=== PATIENT | male | born 1955 | race African-American/Black ===

== ENCOUNTER 2022-03-11 10:08 | Emergency (ER) | payer MEDICARE, MEDICAID ==
[2022-03-11] MEDS ORDERED: SODIUM CHLORIDE 0.9% 1,000 ML IV STA (10:48)
--- NOTE | 2022-03-11 10:50 | ED Physician Documentation ---
History of Present Illness - Stated complaint Stated Complaint: DIZZINESS/BODY ACHES - Chief complaint Chief Complaint: General - History obtained from History obtained from: Patient - History of Present Illness Timing: How many days ago (2) - Additonal information Additional information: 66-year-old male who lives in his car has developed a cough and congestion he aches all over and today he is finding himself weak. He is having a hard time getting in and out of his car. He has not done a home test and he is unimmunized. Review of Systems Constitutional: reports: Myalgias, Fatigue. denies: Fever Eyes: denies: Decreased vision Ears: denies: Ear pain Nose: reports: Rhinorrhea / runny nose, Congestion Throat: denies: Sore throat Cardiac: denies: Chest pain / pressure, Palpitations Respiratory: reports: Cough GI: denies: Vomiting, Diarrhea : denies: Dysuria, Frequency Skin: denies: Rash Musculoskeletal: denies: Neck pain, Back pain, Extremity pain Neurologic: reports: Generalized weakness. denies: Focal weakness, Numbness PD PAST MEDICAL HISTORY - Present Medications Home Medications: Ambulatory Orders Medication Instructions Recorded Confirmed Azithromycin [Zithromax] 250 mg PO DAILY #6 tablet 03/11/22 - Allergies Allergies/Adverse Reactions: Allergies Allergy/AdvReac Type Severity Reaction Status Date / Time No Known Drug Allergies Allergy Verified 03/11/22 10:21 PD ED PE NORMAL - General General: No acute distress, Well developed/nourished, Other (2 second speech delay 2 second delay in execution of motor commands. ) - HEENT HEENT: Atraumatic, PERRL, EOMI, Other (dry mucous membranes) - Neck Neck: Supple, no meningeal sign, No bony TTP - Cardiac Cardiac: RRR, No murmur - Respiratory Respiratory: No respiratory distress, Clear bilaterally - Abdomen Abdomen: Soft, Non tender - Back Back: No CVA TTP, No spinal TTP - Derm Derm: Normal color, Warm and dry, No rash - Extremities Extremities: No deformity, No edema - Neuro Neuro: Alert and oriented X 3, site interpreter 2-12 intact, No motor deficit, No sensory deficit, Normal speech Eye Opening: To Voice Motor: Obeys Commands Verbal: Oriented GCS Score: 14 Results - Vitals Vitals: Vital Signs - 24 hr 03/11/22 03/11/22 03/11/22 10:13 10:36 11:35 Temperature 37.5 C Heart Rate 91 89 80 Respiratory 16 21 29 H Rate Blood Pressure 176/101 H 181/98 H O2 Saturation 97 97 94 Oxygen O2 Source Room air - Labs Labs: Laboratory Tests 03/11/22 03/11/22 03/11/22 11:03 11:03 11:03 WBC 5.0 RBC 4.81 Hgb 10.8 L Hct 35.1 L MCV 73.0 L MCH 22.5 L MCHC 30.8 L RDW 18.0 H Plt Count 212 MPV 10.4 Neut # (Auto) 3.5 Lymph # (Auto) 0.4 L [place] # (Auto) 1.0 Eos # (Auto) 0.0 Baso # (Auto) 0.0 Absolute Nucleated RBC 0.00 Nucleated RBC % 0.0 Sodium 135 Potassium 3.6 Chloride 99 L Carbon Dioxide 24 Anion Gap 12.0 BUN 13 Creatinine 1.1 Estimated GFR (MDRD) 81 L Glucose 89 Lactic Acid 0.8 Calcium 9.0 Total Bilirubin 0.9 AST 28 ALT 13 Alkaline Phosphatase 53 Total Protein 8.4 H Albumin 4.0 Globulin 4.4 H Albumin/Globulin Ratio 0.9 L Lipase 37 Nasal Adenovirus (PCR) Nasal B. parapertussis DNA (PCR) Nasal Coronavir 229E PCR Nasal Coronavir HKU1 PCR Nasal Coronavir NL63 PCR Nasal Coronavir OC43 PCR Nasal Enterovir/Rhinovir PCR Nasal Influenza B PCR Nasal Influenza A PCR Nasal Parainfluen 1 PCR Nasal Parainfluen 2 PCR Nasal Parainfluen 3 PCR Nasal Parainfluen 4 PCR Nasal RSV (PCR) Nasal B.pertussis DNA PCR Nasal C.pneumoniae (PCR) Keith Human Metapneumo PCR Nasal M.pneumoniae (PCR) Nasal SARS-CoV-2 (PCR) 03/11/22 11:05 WBC RBC Hgb Hct MCV MCH MCHC RDW Plt Count MPV Neut # (Auto) Lymph # (Auto) [place] # (Auto) Eos # (Auto) Baso # (Auto) Absolute Nucleated RBC Nucleated RBC % Sodium Potassium Chloride Carbon Dioxide Anion Gap BUN Creatinine Estimated GFR (MDRD) Glucose Lactic Acid Calcium Total Bilirubin AST ALT Alkaline Phosphatase Total Protein Albumin Globulin Albumin/Globulin Ratio Lipase Nasal Adenovirus (PCR) NOT DETECTED Nasal B. parapertussis DNA (PCR) NOT DETECTED Nasal Coronavir 229E PCR NOT DETECTED Nasal Coronavir HKU1 PCR NOT DETECTED Nasal Coronavir NL63 PCR NOT DETECTED Nasal Coronavir OC43 PCR NOT DETECTED Nasal Enterovir/Rhinovir PCR NOT DETECTED Nasal Influenza B PCR NOT DETECTED Nasal Influenza A PCR NOT DETECTED Nasal Parainfluen 1 PCR NOT DETECTED Nasal Parainfluen 2 PCR NOT DETECTED Nasal Parainfluen 3 PCR NOT DETECTED Nasal Parainfluen 4 PCR NOT DETECTED Nasal RSV (PCR) NOT DETECTED Nasal B.pertussis DNA PCR NOT DETECTED Nasal C.pneumoniae (PCR) NOT DETECTED Keith Human Metapneumo PCR NOT DETECTED Nasal M.pneumoniae (PCR) NOT DETECTED Nasal SARS-CoV-2 (PCR) DETECTED A - Rads (name of study) chest Radiology: Prelim report reviewed (Impression: Minimal right basilar atelectasis or infiltrate. Cardiomegaly without vascular congestion.), EMP read indepedently, See rad report Procedures - IVC sono (time) 1044 Bedside IVC sono: IVC measures (cm) (0.82), Dehydration (est 2+ liter deficit) PD MEDICAL DECISION MAKING - ED course Complexity details: reviewed results, re-evaluated patient, considered differential, d/w patient ED course: 66-year-old Sage Stone was found to be dehydrated on interrogation the inferior vena cava and is administered intravenous saline. He does have a feeling of weakness and muscle aches. He has nasal congestion. His PCR is positive for COVID. He is offered Paxlovid which he accepts. We will also treat for atypical pneumonia seen on his chest x-ray. Departure - Departure Disposition: 01 Home, Self Care Clinical Impression: COVID, Dehydration Instructions: ED Dehydration, COVID-19 [facility] Department of Health, Flu and Cold: Nutrition, Prevention and Treatment Tips Follow-Up: [facility] [place] [Provider Group] Prescriptions: Azithromycin [Zithromax] 250 mg PO DAILY #6 tablet Comments: Sage, today it looks like you were dehydrated on arrival to the emergency department and we have given you some fluid for that. In addition you have COVID. Your symptoms are mild and we expect a complete recovery. We have provided emergency use authorization medication called Paxlovid. You will need to take this twice a day for 5 days. In addition you do have something that looks like a COVID related pneumonia on your chest x-ray. These are sometimes an atypical pneumonia and we typically prescribe an antibiotic for this. This has been E scribed to Brian in [place].
[2022-03-11 11:14] LABS: BASOPHILS % (AUTO) 0.2 %; EOSINOPHILS % (AUTO) 0.2 %; HCT - HEMATOCRIT 35.1 % (42.0-52.0); HGB - HEMOGLOBIN 10.8 g/dL (14.0-18.0); LYMPHOCYTES # (AUTO) 0.4 10^3/uL (1.5-3.5); LYMPHOCYTES % (AUTO) 8.4 %; MEAN CORPUSCULAR HEMOGLOBIN 22.5 pg (27.0-31.0); MEAN CORPUSCULAR HGB CONC 30.8 g/dL (32.0-36.0); MEAN PLATELET VOLUME 10.4 fL (7.4-11.4); MONOCYTES % (AUTO) 20.8 %; NEUTROPHILS # (AUTO) 3.5 10^3/uL (1.5-6.6); NEUTROPHILS % (AUTO) 69.8 %; PLT - PLATELET COUNT 212 10^3/uL (130-450); RED BLOOD COUNT 4.81 10^6/uL (4.70-6.10)
[2022-03-11 11:27] LABS: ALBUMIN/GLOBULIN RATIO 0.9 (1.0-2.2); BILIRUBIN,TOTAL 0.9 mg/dL (0.2-1.0); CREATININE 1.1 mg/dL (0.6-1.2); POTASSIUM 3.6 mmol/L (3.5-5.0); TOTAL PROTEIN 8.4 g/dL (6.7-8.2)
[2022-03-11 11:36] VITALS: BP 181/98
--- NOTE | 2022-03-11 11:41 | XRAY Report ---
PROCEDURE: Chest 1 View X-Ray INDICATIONS: chest pain TECHNIQUE: One view of the chest was acquired. COMPARISON: None FINDINGS: Surgical changes and devices: None. Lungs and pleura: No pleural effusions or pneumothorax. Minimal right basilar atelectasis and or inf iltrate Mediastinum: Mediastinal contours appear normal. Heart size is enlarged. Bones and chest wall: No suspicious bony lesions. Overlying soft tissues appear unremarkable. IMPRESSION: Minimal right basilar atelectasis and or infiltrate Cardiomegaly without vascular congestion Reviewed by: Scout Bueno MD on 03/11/2022 10:39 AM LASHAY Approved by: Scout Bueno MD on 03/11/2022 10:39 AM LASHAY Station ID: [id number]
[2022-03-11 12:08] LABS: CORONAVIRUS 229E-RESP PCR NOT DETECTED; CORONAVIRUS HKU1-RESP PCR NOT DETECTED; CORONAVIRUS NL63-RESP PCR NOT DETECTED; CORONAVIRUS OC43-RESP PCR NOT DETECTED
[2022-03-11 12:10] LABS: B. PARAPERTUSSIS- RESP PCR PAN NOT DETECTED; B. PERTUSSIS- RESP PCR PANEL NOT DETECTED; C. PNEUMONIAE- RESP PCR PANEL NOT DETECTED; HUMAN METAPNEUMOVIRUS NOT DETECTED; INFLUENZA A- RESP PCR PANEL NOT DETECTED; INFLUENZA B - RESP PCR PANEL NOT DETECTED; M. PNEUMONIAE- RESP PCR PANEL NOT DETECTED; PARAINFLUENZA VIRUS 1 NOT DETECTED; PARAINFLUENZA VIRUS 2 NOT DETECTED; PARAINFLUENZA VIRUS 3 NOT DETECTED; PARAINFLUENZA VIRUS 4 NOT DETECTED; RHINOVIRUS/ENTEROVIRUS NOT DETECTED; RSV- RESP PCR PANEL NOT DETECTED; SARS-CoV-2 -RESP PCR PANEL DETECTED
[2022-03-11] MEDS ORDERED: NIRMATRELVIR/RITONAVIR PREPACK PO STA (12:24)
== END 2022-03-11 12:40 | disposition home or self-care (01) ==
LOC: ED 10:08
DX: U07.1 COVID-19 (principal); E86.0 Dehydration
CPT/HCPCS: 36415; 71045; 80053; 83605; 83690; 85025; 87633; 96360; 99282; 99284; J3490